=== PATIENT | male | born 1940 | race African-American/Black ===

== ENCOUNTER 2017-10-30 21:51 | Emergency (ER) | payer OTHER ==
[~2017-10-30] VITALS: Ht 170.2 cm; Wt 77.0 kg
[2017-10-30 23:27] VITALS: BP 210/65
== END 2017-10-31 04:54 | disposition home or self-care (01) ==
LOC: ER 21:54
DX: M25.562 Pain in left knee (principal); I10 Essential (primary) hypertension; E78.00 Pure hypercholesterolemia, unspecified; Z86.73 Personal history of transient ischemic attack (TIA), and cerebral infarction without residual deficits
CPT/HCPCS: 99283